=== PATIENT | female | born 1970 ===

== ENCOUNTER 2017-10-10 06:45 | Day surgery (SDC) | payer MEDICARE, OTHER ==
[2017-10-05 14:47] VITALS: BMI 22.1
[2017-10-10] MEDS ORDERED: AMPicillin/Sulbactam 1.5gm 1 GM/100 ML BAG IVPB ONE ×3 (06:49→07:15)
[2017-10-10] MEDS ORDERED: Gentamicin 80 mg/2mL Inj. ONE (07:23)
[2017-10-10] MEDS ORDERED: Lidocaine 2% Inj (20ml) ONE (07:25)
[2017-10-10] MEDS ORDERED: Propofol 10 mg/ml Inj (20 ML) ONE (07:46)
[2017-10-10] MEDS ORDERED: Midazolam 2 MG/2 ML VIAL ONE (07:47)
[2017-10-10 08:12] LABS: CALCIUM 7.1 mg/dL (8.4-10.5); POTASSIUM 4.9 mmol/L (3.6-5.0)
[2017-10-10] MEDS: Bupivacaine 0.5% Inj(30mL) ONE ×2 (08:18→08:33)
[2017-10-10] MEDS ORDERED: HYDROmorphone 0.5 mg/0.5 ml ISec IVP PRN (08:27)
[2017-10-10] MEDS ORDERED: Oxycodone/Acetaminophen 5/325 mg Tab PO PRN ×2 (08:30)
--- NOTE | 2017-10-10 08:36 | PCM.SURG1 ---
Surgeon's Initial Post Op Note - Surgeon's Notes Surgeon: Dr. Christiano Greenberg DPM Weight Loss Sales Consultant: Dr. Luis Park DPM PGY-1 Type of Anesthesia: IV Sedation, Local Anesthesia Administered By: Dr. Hunter Bowman MD Pre-Operative Diagnosis: Chronic Left leg wound Operative Findings: See dictation. M: Apligraft. I: 20 cc of 1:1 mixture of 2 % lidocaine plain: 0.5% marcain plain - pre-op Post-Operative Diagnosis: Same Operation Performed: Debridement with removal of all non-viable soft tissue with the application of apligraft to the left leg Specimen/Specimens Removed: none Estimated Blood Loss: EBL {In ML}: 5 Blood Products Given: N/A Drains Used: No Drains Post-Op Condition: Good Date of Surgery/Procedure: 10/10/17 Time of Surgery/Procedure: 08:36
[2017-10-10] MEDS ORDERED: Oxycodone/Acetaminophen 5/325 mg Tab ONE (08:51)
[2017-10-10] MEDS ORDERED: Oxycodone/Acetaminophen 5/325 mg Tab PO ONE (08:52)
[2017-10-10 09:55] VITALS: PULSE 65; RESP 18; TEMP 97.3; O2SAT 99
[2017-10-10 10:16] VITALS: BP 102/58
--- NOTE | 2017-10-10 22:19 | OP ---
PROCEDURE DATE: 10/10/2017 PREOPERATIVE DIAGNOSIS: Chronic left mid leg nonhealing wound. POSTOPERATIVE DIAGNOSIS: Chronic left mid leg nonhealing wound. NAME OF THE PROCEDURE: Wound debridement with removal of all nonviable soft tissue and application of Apligraf. SURGEON: Christiano Greenberg DPM MANAGER GENERATION: Luis Park DPM, PGY-1. ANESTHESIOLOGIST: Dr. Hunter Bowman. TYPE OF ANESTHESIA: IV sedation with local. INDICATION: The patient is a 47-year-old female with the above diagnosis. The patient has exhausted all conservative treatment at this time and now requires surgical intervention. The patient signed a consent after careful explanation of risks, benefits, complications, and alternatives for the procedure. No guarantees were given nor implied. PREPARATION: The patient was brought into the operating room and placed on the operating room table in supine position. Time-out was performed for identification of the correct patient and the procedure. After induction of IV sedation, the patient received total of 20 mL of one-to-one mixture of 2% lidocaine plain and 0.5% Marcaine plain in a local block type fashion. Once the local anesthesia was achieved, the left leg was then prepped and draped in a normal sterile manner. No tourniquet was used during the procedure. DESCRIPTION OF PROCEDURE: Attention was then directed to the left mid leg at the side of the wound after the careful inspection using a small scissor and pickup. Superficial fibrosis and nonviable soft tissue were removed from the wound bed. Wound bed was then copiously irrigated with gentamicin and few sterile saline. At this time, fenestrated Apligraf was applied to the wound bed and was stabilized with Steri-Strips. The left leg was then dressed with Adaptic, 4 x 4 gauze, pad, Kerlix, and loose Coban. POSTOPERATIVE CONDITION: The patient tolerated the anesthesia and the procedure well and was escorted to the recovery room with vital signs stable and neurovascular status intact to the left lower extremity. All the postoperative instructions were explained before the procedure. The patient will be seen and followed by Dr. Mejia as an outpatient in wound care center. Luis Park DPM Christiano Greenberg DPM [facility] # [id number]
== END 2017-10-10 12:00 | disposition home or self-care (01) ==
LOC: SDS 06:45
PROVIDERS: ATTEND Podiatrist
DX: L97.922 Non-pressure chronic ulcer of unspecified part of left lower leg with fat layer exposed (principal); I12.9 Hypertensive chronic kidney disease with stage 1 through stage 4 chronic kidney disease, or unspecified chronic kidney disease; N18.9 Chronic kidney disease, unspecified; Z95.2 Presence of prosthetic heart valve; Z83.3 Family history of diabetes mellitus; Z82.49 Family history of ischemic heart disease and other diseases of the circulatory system; Z80.0 Family history of malignant neoplasm of digestive organs
CPT/HCPCS: 11042; 15271; 36415; 80048; 87070; 87075; 87181; J0295; J1170; J1580; J2250; J2405; J2704; J7120; Q4101